=== PATIENT | female | born 1980 | race Caucasian/White ===

== ENCOUNTER → 2020-07-19 | Outpatient (CLI) | payer OTHER ==
--- NOTE | 2020-07-19 15:30 | MR ---
EXAMINATION TYPE: MR shoulder RT wo con DATE OF EXAM: 07/19/2020 COMPARISON: No radiographic correlation available HISTORY: 44-year-old female M25.511, Pain in right shoulder TECHNIQUE: Multiplanar, multisequence imaging of the right shoulder is performed without contrast. FINDINGS: Some intermediate signal within the long head biceps tendon at the junction of the intracapsular and extracapsular portions suggesting tendinosis. The extracapsular portion remains appropriately situate d along the bicipital groove. Some heterogeneous signal of the subscapularis tendon without tear. The supraspinatous tendon shows some bursal sided fraying. In addition, there is some minimal intrasubstance change at the footprint of the infraspinatus tendon . No high-grade partial or full-thickness rotator cuff tear. No atrophy of the rotator cuff musculature. There is moderate degenerative change at the acromioclavicular joint with marginal spurring mildly im pinging onto the underlying myotendinous junction of the supraspinatus. Trace thickening of the subacromial/subdeltoid bursa without fluid distention. No discrete labral tear given the radiographic technique. No paralabral cyst. Overall linear odontoid appears intact. No significant joint effusion. No Hill-Sachs deformity or os acromiale. Patchy red marrow is present and can be seen in the setting of anemia, obesity, smoking, and chronic disease. IMPRESSION: 1. Moderate AC joint OA. Inferior spurring likely contributes to mild subacromial impingement. 2. Bursal sided fraying of the supraspinatus tendon. No partial or full-thickness rotator cuff tear.
== END ==
LOC: RADMRIMAIN 11:05
PROVIDERS: ATTEND Orthopaedic Surgery
DX: M19.011 Primary osteoarthritis, right shoulder (principal)

== ENCOUNTER → 2020-09-17 | Outpatient (CLI) | payer OTHER ==
[2020-09-18 00:12] LABS: Basophils # (A) 0.03 X 10*3/uL (0.00-0.10); Basophils % (A) 0.5 %; Eosinophils # (A) 0.11 X 10*3/uL (0.04-0.35); Eosinophils % (A) 1.7 %; HCT 41.8 % (37.2-46.3); HGB 12.8 g/dL (12.0-15.0); Lymphocytes # (A) 2.11 X 10*3/uL (0.90-5.00); Lymphocytes % (A) 32.2 %; MCH 27.4 pg (27.0-32.0); MCHC 30.6 g/dL (32.0-37.0); MCV 89.3 fL (80.0-97.0); Mean Platelet Volume 10.9 fL (9.5-12.2); Monocytes # (A) 0.41 X 10*3/uL (0.20-1.00); Monocytes % (A) 6.3 %; Neutrophils # (A) 3.88 X 10*3/uL (1.80-7.70); Platelet Count 331 X 10*3/uL (140-440); RBC 4.68 X 10*6/uL (4.10-5.20); RDW 13.8 % (11.5-14.5); WBC 6.56 X 10*3/uL (4.50-10.00)
[2020-09-18 03:59] LABS: Potassium 4.1 mmol/L (3.5-5.5)
== END | disposition home or self-care (01) ==
LOC: LABWHC1 15:49
PROVIDERS: ATTEND Orthopaedic Surgery
DX: Z01.812 Encounter for preprocedural laboratory examination (principal); M23.92 Unspecified internal derangement of left knee
CPT/HCPCS: 36415; 80051; 85025

== ENCOUNTER 2020-09-23 10:09 | Day surgery (SDC) | payer OTHER ==
[2020-09-20 14:02] VITALS: BMI 29.8
--- NOTE | 2020-09-22 17:19 | HP ---
HISTORY AND PHYSICAL DATE OF SURGERY: 09/23/2020 Holly Riggins is a 40-year-old patient seen with progressive left knee pain. Options for treatment were discussed. She elected to proceed with left knee arthroscopy. Consent was obtained. PAST MEDICAL HISTORY: Osteoarthritis. PAST SURGICAL HISTORY: Shoulder arthroscopy, ORIF, elbow. DAILY MEDICATIONS: Zoloft. ALLERGIES: MOBIC, PERCOCET, TRAMADOL. SOCIAL HISTORY: She denies tobacco use. PHYSICAL EVALUATION OF THE LEFT KNEE: Range of motion is negative 1 to 95. Tenderness, medial joint line. Positive medial Khushbu's. Mild effusion. Ligaments stable. Patellar crepitus. Distal neurovascular exam intact. Left knee MRI revealed a loose body, full-thickness chondral defect and joint effusion. X-ray of the left knee revealed mild osteoarthritis. IMPRESSION: Internal derangement of left knee with osteochondral tear and loose body. PLAN: Left knee arthroscopy with chondroplasty and removal of loose body. MMODL / IJN: [id number] /
[~2020-09-23 10:09] MED LIST: DEXAMETHASONE SOD PHOSPHATE 4 MG/ML 1 ML VIAL IV ONE; LACTATED RINGERS 1,000 ML IV SCH; LIDOCAINE 1% (10MG/ML) FOR IV START INTRADERMA PRN; ONDANSETRON 4 MG/2 ML VIAL IVP ONE
[2020-09-23 10:34] VITALS: RESP 16; TEMP 98.7
[2020-09-23] MEDS ORDERED: BUPIVACAINE (PF) 0.25% 30 ML VIAL SQ ONE ×2 (12:01→12:41)
[2020-09-23] MEDS ORDERED: LIDOCAINE 1% INJ 10MG/ML (20 ML MDV) ONE (12:08)
[2020-09-23] MEDS ORDERED: MIDAZOLAM 2 MG/2 ML VIAL ONE (12:08)
[2020-09-23] MEDS ORDERED: KETOROLAC 15 MG/ML 1 ML VIAL ONE (12:08)
[2020-09-23] MEDS ORDERED: PROPOFOL 10 MG/ML 20 ML VIAL IV ONE (12:08)
[2020-09-23] MEDS ORDERED: fentaNYL (PF) 50 MCG/ML 2 ML AMP ONE (12:08)
--- NOTE | 2020-09-23 12:57 | P.OP ---
Date of Procedure: 09/23/20 Preoperative Diagnosis: Internal derangement left knee Postoperative Diagnosis: 1. Tear medial meniscus left knee 2. Grade 4 chondromalacia medial femoral condyle left knee 3. Grade 4 chondromalacia femoral sulcus left knee 4. Reactive synovitis medial, lateral and suprapatellar compartments left knee Procedure(s) Performed: 1. Arthroscopic partial medial meniscectomy left knee 2. Arthroscopic chondroplasty medial femoral condyle left knee 3. Arthroscopic microfracture medial femoral condyle left knee 4. Arthroscopic chondroplasty femoral sulcus left knee 5. Arthroscopic partial synovectomy medial, lateral and suprapatellar compartments left knee Anesthesia: STACY, local Surgeon: Prieto Cardenas Estimated Blood Loss (ml): 7 Pathology: none sent Condition: stable Disposition: PACU Indications for Procedure: 40-year-old patient seen with progressive left knee pain. After treatment options were discussed, she elected to proceed with arthroscopy. Operative Findings: See description of procedure Description of Procedure: Patient was taken to the operative suite. Patient underwent a general anesthetic by the department of anesthesia. Patient was given preoperative antibiotics. The left lower extremity was placed in a well-padded arthroscopic leg funes. The left leg was prepped and draped in the normal sterile orthopedic fashion. A lateral parapatellar and suprapatellar incision was made. Trochars were inserted. Arthroscopy was initiated. Suprapatellar pouch revealed diffuse thick reactive synovitis. The patellofemoral joint appeared to articulate congruently. There was grade 3/4 chondromalacia of the femoral sulcus with some large osteochondral flap tears present. The scope was guided into the medial gutter. Loose bodies or plica were identified. The scope was then guided into the medial compartment. A medial parapatellar incision was made. Trocar inserted followed by probe. There was a small radial tear posterior horn medial meniscus. There was an area of grade 4 chondromalacia weightbearing surface medial femoral condyle with large osteochondral flap tears. There was thick reactive synovitis anteriorly. I performed a partial medial meniscectomy down to stable meniscal tissue. I performed a chondroplasty of the medial femoral condyle getting down to stable osteochondral tissue. I performed a partial synovectomy decompressing the thick reactive synovitis ante riorly. The residual meniscus was stable. There was good decompression of the synovitis. There was a 1 cm x 2 cm area of exposed bone weightbearing surface medial femoral condyle. I now performed a microfracture to area penetrating the bone with resultant bleeding at the microfracture site. The peripheral osteochondral surface was again probed and was found be stable. Scope and probe were then guided into the intercondylar notch. Cruciates were identified, probed and found to be stable. The scope and probe were then guided into lateral compartment. The lateral meniscus was probed and found to be stable. There was no significant chondromalacia. There was some thick reactive synovitis anteriorly. I introduced a motorized shaver and performed a partial synovectomy. The shaver was removed. There was good decompression of the synovitis. The scope was in guided back into the suprapatellar compartment. Introduced a motorized shaver into the suprapatellar compartment. I debrided some piecemeal fragments of meniscus I encountered. I performed a chondroplasty of the femoral sulcus getting down to stable osteochondral tissue. There was an area centrally of exposed bone measuring 1 x 1 cm but the peripheral osteochondral surface was stable. I now performed a partial synovectomy decompressing the thick reactive synovitis within the suprapatellar compartment. The shaver was removed. There was good decompression of the synovitis there. I now took one more look on the entire knee, no residual debris. Instruments were now removed from the joint. The joint was infiltrated with .25% Marcaine. Steri-Strips were applied to the portal sites. Sterile dressings were applied. The patient was placed into a LIZANDRO hose. No tourniquet was utilized. The patient was awakened, transferred to a bed and taken to recovery stable satisfactory condition.
[2020-09-23] MEDS ORDERED: fentaNYL (PF) 50 MCG/ML 2 ML AMP IVP ONE (13:30)
[2020-09-23 14:43] VITALS: BP 122/77; PULSE 71
== END 2020-09-23 14:48 | disposition home or self-care (01) ==
LOC: OR 10:09
PROVIDERS: ATTEND Orthopaedic Surgery
DX: M23.222 Derangement of posterior horn of medial meniscus due to old tear or injury, left knee (principal); M94.262 Chondromalacia, left knee; M65.862 Other synovitis and tenosynovitis, left lower leg; M19.90 Unspecified osteoarthritis, unspecified site; F32.9 Major depressive disorder, single episode, unspecified; Z98.890 Other specified postprocedural states; Z98.1 Arthrodesis status; Z79.899 Other long term (current) drug therapy; Z88.6 Allergy status to analgesic agent; Z88.5 Allergy status to narcotic agent
CPT/HCPCS: 81025; 29881; 29879; J2250; J1100; J2405; J2001; J3010; J1885; J2704

== ENCOUNTER → 2020-12-03 | Outpatient (CLI) | payer OTHER ==
[2020-12-03 19:01] LABS: HCT 40.9 % (37.2-46.3); HGB 13.4 g/dL (12.0-15.0); MCH 28.7 pg (27.0-32.0); MCHC 32.8 g/dL (32.0-37.0); MCV 87.6 fL (80.0-97.0); Mean Platelet Volume 10.6 fL (9.5-12.2); Platelet Count 304 X 10*3/uL (140-440); RBC 4.67 X 10*6/uL (4.10-5.20); RDW 14.2 % (11.5-14.5)
[2020-12-03 19:47] LABS: INR 1.01 (0.90-1.11)
[2020-12-04 05:10] LABS: African American GFR (CKD) 124.7 (60.0-200.0); Albumin 4.5 g/dL (3.80-4.90); Albumin/Globulin Ratio 1.73 (1.60-3.17); Anion Gap 13.1 mmol/L (4.00-12.00); BUN/Creat Ratio 14.29 Ratio (12.00-20.00); Carbon Dioxide 20.9 mmol/L (21.6-31.8); Globulin 2.6 g/dL (1.6-3.3); Non-African American GFR(CKD) 107.6 (60.0-200.0); Potassium 3.8 mmol/L (3.5-5.5); Total Bilirubin 0.6 mg/dL (0.2-1.2); Total Protein 7.1 g/dL (6.2-8.2)
[2020-12-04 05:27] LABS: Ferritin 11.6 ng/mL (10.0-291.0)
== END | disposition home or self-care (01) ==
LOC: LABWHC1 11:26
PROVIDERS: ATTEND Family Medicine
DX: K75.81 Nonalcoholic steatohepatitis (NASH) (principal); K83.9 Disease of biliary tract, unspecified; R10.9 Unspecified abdominal pain
CPT/HCPCS: 36415; 80053; 82140; 82728; 85027; 85610

== ENCOUNTER 2021-04-25 17:24 | Emergency (ER) | payer OTHER ==
--- NOTE | 2021-04-25 18:10 | ED ---
Psych HPI - General Stated Complaint: EPS eval Time Seen by Provider: 04/25/21 18:07 Source: patient, RN notes reviewed Mode of arrival: ambulatory Limitations: no limitations - History of Present Illness Initial Comments: This is a 40-year-old female presents emergency Department with chief complaint of needing psychiatric evaluation. Patient had some recent medication changes what to make her mental health worse. She's had increasing suicidal ideation. Patient states that her PCP decided to discontinue medication advised her to come emergency department for psychiatric evaluation Patient is in no attempts to harm himself. Patient denies any illicit drug use. No alcohol abuse - Related Data Home Medications Medication Instructions Recorded Confirmed Ascorbic Acid [Vitamin C] 2,000 mg PO DAILY 09/20/20 09/20/20 Cannabidiol (Cbd) [Epidiolex] 0 mg PO DIRECTED 09/20/20 09/23/20 Cholecalciferol [Vitamin D3 (25 50 mcg PO DAILY 09/20/20 09/20/20 Mcg = 1000 Iu)] Gabapentin 300 mg PO BID PRN 09/20/20 09/20/20 Sertraline [Zoloft] 100 mg PO DAILY 09/20/20 09/23/20 Zinc 50 mg PO DAILY 09/20/20 09/20/20 Allergies Allergy/AdvReac Type Severity Reaction Status Date / Time acetaminophen [From Percocet] Allergy does not Verified 04/25/21 18:06 take due to liver issues meloxicam [From Mobic] Allergy rash, Verified 04/25/21 18:06 headache, body aches oxycodone [From Percocet] Allergy Vomiting, Verified 04/25/21 18:06 headaches tramadol Allergy Vomiting, Verified 04/25/21 18:06 headaches Review of Systems ROS Statement: Those systems with pertinent positive or pertinent negative responses have been documented in the HPI. ROS Other: All systems not noted in ROS Statement are negative. General Exam General appearance: alert, in no apparent distress Head exam: Present: atraumatic, normocephalic, normal inspection Neck exam: Present: normal inspection, full ROM. Absent: tenderness, meningismus, lymphadenopathy Respiratory exam: Present: normal lung sounds bilaterally. Absent: respiratory distress, wheezes, rales, rhonchi, stridor Cardiovascular Exam: Present: regular rate, normal rhythm, normal heart sounds. Absent: systolic murmur, diastolic murmur, rubs, gallop, clicks Neurological exam: Present: alert, oriented X3, CN II-XII intact Psychiatric exam: Present: depressed Skin exam: Present: warm, dry, intact, normal color. Absent: rash Course Vital Signs 04/25/21 04/25/21 18:06 20:59 Temperature 98.5 F Pulse Rate 91 Respiratory 20 18 Rate Blood Pressure 136/98 O2 Sat by Pulse 99 Oximetry Medical Decision Making - Medical Decision Making patient was evaluated in emergency department for psychiatric treatment. Patient will be discharged in stable condition with safety plan. - Lab Data Lab Results 04/25/21 Range/Units 18:44 Urine Opiates Screen Not Detected (NotDetected) Ur Oxycodone Screen Not Detected (NotDetected) Urine Methadone Screen Not Detected (NotDetected) Ur Propoxyphene Screen Not Detected (NotDetected) Ur Barbiturates Screen Not Detected (NotDetected) U Tricyclic Antidepress Not Detected (NotDetected) Ur Phencyclidine Scrn Not Detected (NotDetected) Ur Amphetamines Screen Not Detected (NotDetected) U Methamphetamines Scrn Not Detected (NotDetected) U Benzodiazepines Scrn Not Detected (NotDetected) Urine Cocaine Screen Not Detected (NotDetected) U Marijuana (THC) Screen Detected H (NotDetected) Disposition Clinical Impression: Depression Disposition: HOME SELF-CARE Condition: Stable Instructions (If sedation given, give patient instructions): Depression (ED) Additional Instructions: Please return to the Emergency Department if symptoms worsen or any other concerns. Is patient prescribed a controlled substance at d/c from ED?: No Referrals: Zain Kan MD [Primary Care Provider] - 1-2 days Time of Disposition: 21:40
[2021-04-25 19:16] LABS: Amphetamine Screen,Urine Not Detected (NotDetected); Barbiturate Screen,Urine Not Detected (NotDetected); Benzodiazepines Screen,Urine Not Detected (NotDetected); Cocaine Screen,Urine Not Detected (NotDetected); Methadone Screen, Urine Not Detected (NotDetected); Opiate Screen,Urine Not Detected (NotDetected); Oxycodone Screen, Urine Not Detected (NotDetected); Phencyclidine Screen,Urine Not Detected (NotDetected); Tricyclic Antidepressant,Urine Not Detected (NotDetected); Urn Cannabinoid Scrn Detected (NotDetected)
[2021-04-25] MEDS ORDERED: IBUPROFEN 600 MG TAB PO STA (20:05)
[2021-04-25] MEDS ORDERED: diphenhydrAMINE 50 MG CAP PO STA (20:05)
[2021-04-25] MEDS ORDERED: ACETAMINOPHEN TAB 325 MG TAB PO STA (20:05)
[2021-04-25 21:00] VITALS: RESP 18
[2021-04-25] MEDS ORDERED: LORazepam 2 MG/ML INJ IM STA (21:02)
[2021-04-25] MEDS ORDERED: LORazepam 1 MG TAB PO STA (21:49)
[2021-04-25 22:02] VITALS: BP 144/80; PULSE 85; TEMP 98.2
== END 2021-04-25 22:06 | disposition home or self-care (01) ==
LOC: EC 17:24
DX: F32.A Depression, unspecified (principal); Z79.899 Other long term (current) drug therapy
CPT/HCPCS: 82075; 80306; 99285; 96372; J2060

== ENCOUNTER → 2021-09-13 | Outpatient (CLI) | payer MEDICARE, OTHER ==
[2021-09-13 20:57] LABS: HCT 43.7 % (37.2-46.3); HGB 13.4 g/dL (12.0-15.0); MCH 28.8 pg (27.0-32.0); MCHC 30.7 g/dL (32.0-37.0); Mean Platelet Volume 11.3 fL (9.5-12.2); NRBC Per 100 WBC 0 /100 WBCS (0.0-0.0); Platelet Count 292 X 10*3/uL (140-440); RBC 4.65 X 10*6/uL (4.10-5.20); RDW 13.3 % (11.5-14.5); WBC 7.79 X 10*3/uL (4.50-10.00)
[2021-09-13 22:49] LABS: Albumin 4.3 g/dL (3.8-4.9); Albumin/Globulin Ratio 1.6 (1.60-3.17); Anion Gap 12.4 mmol/L (10.00-18.00); BUN/Creat Ratio 23.73 Ratio (12.00-20.00); Blood Urea Nitrogen 15.4 mg/dL (9.0-27.0); Calcium 9.2 mg/dL (8.7-10.3); Carbon Dioxide 23.9 mmol/L (20.0-27.5); Estradiol 35.9 pg/mL; Globulin 2.7 g/dL (1.6-3.3); Non-African American GFR(CKD) 109.6 (60.0-200.0); Potassium 4.3 mmol/L (3.5-5.5); Testosterone 20.4 ng/mL (9.01-47.94); Total Bilirubin 0.2 mg/dL (0.30-1.20); Total Protein 7.1 g/dL (6.2-8.2)
== END | disposition home or self-care (01) ==
LOC: LABWHC1 12:19
PROVIDERS: ATTEND Family Medicine
DX: N95.1 Menopausal and female climacteric states (principal); F32.81 Premenstrual dysphoric disorder; K75.81 Nonalcoholic steatohepatitis (NASH)
CPT/HCPCS: 36415; 80053; 82670; 84144; 84403; 84443; 85027

== ENCOUNTER → 2021-11-09 | Outpatient (CLI) | payer MEDICARE ==
--- NOTE | 2021-11-10 04:19 | MR ---
EXAMINATION TYPE: MR shoulder LT wo con DATE OF EXAM: 11/09/2021 COMPARISON: None HISTORY: LFT SHOULDER PAIN Multiplanar multiecho imaging of the left shoulder with no contrast. There is a mild shoulder joint effusion. Subscapularis tendon is intact. Biceps tendon appears normal . The glenoid saturnino appear intact. The AC joint is intact. There is minor spurring at the AC joint and greater minimal subacromial impin gement. The supraspinatus tendon appears intact. No retraction. Infraspinatus tendon is intact. Humer al head is intact. I see no focal bone destruction. IMPRESSION: Small shoulder joint effusion suggestive of some mild synovitis. No evidence of rotator cuff tear. Mi nor spurring at the AC joint.
== END | disposition home or self-care (01) ==
LOC: RADMRIMAIN 12:52
PROVIDERS: ATTEND Orthopaedic Surgery
DX: M19.012 Primary osteoarthritis, left shoulder (principal)

== ENCOUNTER → 2021-11-24 | Outpatient (CLI) | payer MEDICARE ==
[2021-11-24 16:14] LABS: Basophils # (A) 0.04 X 10*3/uL (0.00-0.10); Basophils % (A) 0.8 %; Eosinophils % (A) 2.1 %; HCT 42.5 % (37.2-46.3); HGB 13.4 g/dL (12.0-15.0); Immature Grans, Automated 0.2 %; Lymphocytes # (A) 1.69 X 10*3/uL (0.90-5.00); Lymphocytes % (A) 34.9 %; MCH 28.9 pg (27.0-32.0); MCHC 31.5 g/dL (32.0-37.0); MCV 91.8 fL (80.0-97.0); Mean Platelet Volume 10.5 fL (9.5-12.2); Monocytes # (A) 0.29 X 10*3/uL (0.20-1.00); NRBC Per 100 WBC 0 /100 WBCS (0.0-0.0); Neutrophils # (A) 2.71 X 10*3/uL (1.80-7.70); Platelet Count 260 X 10*3/uL (140-440); RBC 4.63 X 10*6/uL (4.10-5.20); RDW 13.5 % (11.5-14.5); WBC 4.84 X 10*3/uL (4.50-10.00)
[2021-11-24 17:06] LABS: Carbon Dioxide 25.7 mmol/L (20.0-27.5); Potassium 4.5 mmol/L (3.5-5.5)
== END | disposition home or self-care (01) ==
LOC: LABPAT 09:42
PROVIDERS: ATTEND Orthopaedic Surgery
DX: Z01.812 Encounter for preprocedural laboratory examination (principal); M75.41 Impingement syndrome of right shoulder
CPT/HCPCS: 80051; 85025

== ENCOUNTER → 2023-07-31 | Outpatient (CLI) | payer MEDICARE, OTHER ==
--- NOTE | 2023-07-31 15:09 | MM ---
Reason for Exam: Screening (asymptomatic). Baseline mammogram. Patient History: Menarche at age 10. Patient has no children. Last menstrual period: 06/30/2023 Risk Values: Brandy 5 year model risk: 0.9%. NCI Lifetime model risk: 11.8%. Prior Study Comparison: Patient's first Mammogram. Tissue Density: The breasts are heterogeneously dense, which may obscure small masses. Findings: Analyzed By CAD. Asymmetries in the bilateral breasts in the upper aspect on MLO view on the left and retroareolar on MLO view on the right, as well as the lateral aspect and posterior nipple on the right CC. , ASSESSMENT: 0 - Incomplete: Need additional imaging evaluation. Overall Assessment: Incomplete: need additional imaging evaluation, BI-RAD 0 Management: Diagnostic Mammogram of both breasts. [facility] will attempt to contact patient to return for supplemental views and ultrasound if indicated. Patient should continue monthly self-breast exams. A clinical breast exam by your physician is recommended on an annual basis. This exam should not preclude additional follow-up of suspicious palpable abnormalities. Note on Brandy scores and lifetime risk: 1. A Brandy score greater than 3% is considered moderate risk. If this is the case, consider specialist referral to assess eligibility for a risk reducing agent. 2. If overall lifetime risk for the development of breast cancer is 20% or higher, the patient may qualify for future screening with alternating mammogram and breast MRI. Electronically signed and approved by: Keagan Carcamo DO
== END | disposition home or self-care (01) ==
LOC: RADMAMWWP 10:47
PROVIDERS: ATTEND Family Medicine
DX: Z12.31 Encounter for screening mammogram for malignant neoplasm of breast (principal)
CPT/HCPCS: 77067

== ENCOUNTER → 2023-08-06 | Outpatient (CLI) | payer MEDICARE ==
--- NOTE | 2023-08-06 10:45 | MM ---
Reason for Exam: Additional evaluation requested from prior study. Last screening mammogram was performed less than 1 month ago. Patient History: Menarche at age 10. Patient has no children. Risk Values: Brandy 5 year model risk: 0.9%. NCI Lifetime model risk: 11.8%. Prior Study Comparison: 07/31/2023 Bilateral MG screening mammo w CAD, [facility]. Tissue Density: The breasts are heterogeneously dense, which may obscure small masses. Findings: Analyzed By CAD. Area of concern/asymmetry compresses out on spot compression imaging. No suspicious masses, calcifications or distortions. Overall Assessment: Benign, BI-RAD 2 Management: Screening Mammogram of both breasts in 1 year. Results were given to the patient verbally at the time of exam. Patient should continue monthly self-breast exams. A clinical breast exam by your physician is recommended on an annual basis. This exam should not preclude additional follow-up of suspicious palpable abnormalities. Note on Brandy scores and lifetime risk: 1. A Brandy score greater than 3% is considered moderate risk. If this is the case, consider specialist referral to assess eligibility for a risk reducing agent. 2. If overall lifetime risk for the development of breast cancer is 20% or higher, the patient may qualify for future screening with alternating mammogram and breast MRI. Electronically signed and approved by: Keagan Carcamo DO
== END | disposition home or self-care (01) ==
LOC: RADMAMWWP 10:00
PROVIDERS: ATTEND Family Medicine
DX: R92.333 Mammographic heterogeneous density, bilateral breasts (principal)
CPT/HCPCS: 77066; G0279; 77062

== ENCOUNTER → 2024-04-29 | Outpatient (CLI) | payer MEDICARE ==
--- NOTE | 2024-04-29 15:43 | CT ---
EXAMINATION TYPE: CT soft tissue neck w con CT DLP: 413.70 mGycm, Automated exposure control for dose reduction was used. DATE OF EXAM: 04/29/2024 3:01 PM COMPARISON: None. CLINICAL INDICATION:Female, 43 years old with history of R60.0 Edema K11.8 Other Diseases of salivary glands; PHH, rt side lump X 1month marked with BB TECHNIQUE: Standard enhanced CT of the neck following intravenous administration of 100 cc of Isovue 300. Axial sections with coronal and sagittal reformats were obtained. FINDINGS: Brain: Visualized portions are grossly unremarkable. Orbits: Unremarkable Sinuses: Grossly unremarkable. Suprahyoid Neck: The oropharynx, oral cavity, parapharyngeal and retropharyngeal spaces are clear and symmetric. The nasopharynx is unremarkable. Infrahyoid Neck: The larynx, hypopharynx, and supraglottic area are clear and symmetric. Parotid Glands: Unremarkable. Submandibular Glands: Left mandibular gland is unremarkable. Approximately 4 abutting calculi identif ied within the right submandibular gland proximal duct with largest measuring 4 mm (series 3, image 7 1). Hypoattenuating appearance of the right submandibular gland compared to the left. No significant surrounding inflammatory changes. No fluid collections. Musculoskeletal: No acute osseous pathology. Postsurgical changes from anterior cervical fusion C5-C6 . Lymph nodes: No enlarged lymph nodes greater than 1 cm in short axis. Vascular structures: Visualized major arteries are patent without evidence of aneurysm. Thoracic Inlet/airway: Airway is patent. The lung apices are clear. Soft tissues/Thyroid: Thyroid and remainder of the soft tissues are unremarkable. Other: none. IMPRESSION Palpable abnormality relates to approximately 4 abutting calculi within the right submandibular gland proximal [place]'s duct. Largest measuring up to 4 mm. No hyperenhancement or surrounding inflammato ry changes of the right submandibular gland to suggest active inflammation. Correlate clinically. [facility], , 04/29/2024 3:41 PM
== END | disposition home or self-care (01) ==
LOC: RADCTMAIN 14:32
PROVIDERS: ATTEND Family Medicine
DX: R60.0 Localized edema (principal); K11.8 Other diseases of salivary glands
CPT/HCPCS: 70491; Q9967

== ENCOUNTER 2024-09-21 14:15 | Emergency (ER) | payer MEDICARE ==
[2024-09-21] MEDS: SODIUM CHLORIDE 0.9% 1,000 ML IV ONE (17:07)
[2024-09-21 17:18] LABS: Basophils # (A) 0.02 10*3/uL (0.00-0.10); Basophils % (A) 0.3 %; Eosinophils # (A) 0.11 10*3/uL (0.04-0.35); Eosinophils % (A) 1.9 %; HCT 39.7 % (37.2-46.3); HGB 13.8 g/dL (12.0-15.0); Lymphocytes # (A) 2.18 10*3/uL (0.90-5.00); Lymphocytes % (A) 37.1 %; MCH 31.5 pg (27.0-32.0); MCHC 34.8 g/dL (32.0-37.0); MCV 90.6 fL (80.0-97.0); Mean Platelet Volume 9.9 fL (9.5-12.2); Monocytes % (A) 5.1 %; Neutrophils # (A) 3.24 10*3/uL (1.80-7.70); Neutrophils % (A) 55.3 %; Platelet Count 272 10*3/uL (140-440); RBC 4.38 10*6/uL (4.10-5.20); RDW 12.6 % (11.5-14.5); WBC 5.87 10*3/uL (4.50-10.00)
[2024-09-21 17:34] LABS: ALT 40 U/L (4-34); AST 39 U/L (14-36); African American GFR (CKD) >90 (>60 ml/min/1.73 sqM); Albumin 4.3 g/dL (3.5-5.0); Alkaline Phosphatase 61 U/L (38-126); Amylase 59 U/L (30-110); Anion Gap 7 mmol/L; Blood Urea Nitrogen 9 mg/dL (7-17); Calcium 9.9 mg/dL (8.4-10.2); Carbon Dioxide 26 mmol/L (22-30); Chloride 105 mmol/L (98-107); Glucose 90 mg/dL (74-99); Lipase 84 U/L (23-300); Non-African American GFR(CKD) >90 (>60 ml/min/1.73 sqM); Potassium 3.7 mmol/L (3.5-5.1); Sodium 138 mmol/L (137-145); Total Bilirubin 0.7 mg/dL (0.2-1.3); Total Protein 7.4 g/dL (6.3-8.2)
--- NOTE | 2024-09-21 17:40 | US ---
EXAMINATION TYPE: US abdomen limited DATE OF EXAM: 09/21/2024 COMPARISON: NONE CLINICAL INDICATION: Female, 44 years old with history of epigastric pain; epigastric pain. Cholecyst ectomy and "bile duct surgery" in 2017. TECHNIQUE: Grayscale and color Doppler imaging of the right upper quadrant was performed. FINDINGS: EXAM MEASUREMENTS: Liver Length: 17.2 cm Gallbladder Wall: Surgically absent CBD: 0.21 cm Right Kidney: 11.5 x 4.9 x 4.6 cm [employer] NOTES: Pancreas: wnl Liver: dilated vessels seen, hepatomegaly , smooth contour No evidence for mass no dilated ducts. Gallbladder: Surgically absent Evidence for sonographic Galicia's sign: No CBD: wnl Right Kidney: wnl IMPRESSION: 1. No evidence for acute process. 2. Hepatomegaly. [facility], , 09/21/2024 5:37 PM
[2024-09-21 17:45] LABS: Partial Thromboplastin Time 25.1 sec (22.0-30.0)
[2024-09-21 18:06] LABS: Prothrombin Time 11.4 sec (10.0-12.5)
--- NOTE | 2024-09-21 18:47 | ED ---
Abdominal Pain HPI - General Chief Complaint: Abdominal Pain Stated Complaint: abd cramps Time Seen by Provider: 09/21/24 15:55 Source: patient Mode of arrival: ambulatory Limitations: no limitations - History of Present Illness Initial Comments: 44-year-old female presenting with chief complaint of abdominal pain. Has been ongoing for the last 4 days. This is epigastric pain that is cramping in nature. It is brought on when she eats. Patient does have history of liver cysts, she has had a cholecystectomy and removal of the CBD as well as a dayan en y procedure. She follows with a team at [facility]. Some nausea no vomiting. No changes in her bowel patterns. No fever. No chest pain or difficulty breathing. - Related Data Home Medications Medication Instructions Recorded Confirmed Ascorbic Acid [Vitamin C] 2,000 mg PO DAILY 09/20/20 09/20/20 Cannabidiol (Cbd) [Epidiolex] 0 mg PO DIRECTED 09/20/20 09/23/20 Cholecalciferol [Vitamin D3 (25 50 mcg PO DAILY 09/20/20 09/20/20 Mcg = 1000 Iu)] Gabapentin 300 mg PO BID PRN 09/20/20 09/20/20 Sertraline [Zoloft] 100 mg PO DAILY 09/20/20 09/23/20 Zinc 50 mg PO DAILY 09/20/20 09/20/20 Allergies Allergy/AdvReac Type Severity Reaction Status Date / Time acetaminophen [From Percocet] Allergy does not Verified 09/21/24 14:32 take due to liver issues meloxicam [From Mobic] Allergy rash, Verified 09/21/24 14:32 headache, body aches oxycodone [From Percocet] Allergy Vomiting, Verified 09/21/24 14:32 headaches tramadol Allergy Vomiting, Verified 09/21/24 14:32 headaches Review of Systems ROS Statement: Those systems with pertinent positive or pertinent negative responses have been documented in the HPI. ROS Other: All systems not noted in ROS Statement are negative. Past Medical History Additional Past Medical History / Comment(s): TBI, liver cysts, c5-c6 fusion History of Any Multi-Drug Resistant Organisms: None Reported Past Surgical History: Orthopedic Surgery Additional Past Surgical History / Comment(s): bile duct removal Past Psychological History: Anxiety, Depression, PTSD Smoking Status: Never smoker Past Alcohol Use History: Rare Past Drug Use History: Marijuana General Exam Limitations: no limitations General appearance: alert, in no apparent distress Head exam: Present: atraumatic, normocephalic, normal inspection Eye exam: Present: normal appearance, EOMI Neck exam: Present: normal inspection. Absent: meningismus Respiratory exam: Present: normal lung sounds bilaterally. Absent: respiratory distress, wheezes, rales, rhonchi, stridor Cardiovascular Exam: Present: regular rate, normal rhythm, normal heart sounds. Absent: systolic murmur, diastolic murmur, rubs, gallop, clicks GI/Abdominal exam: Present: soft, tenderness (Epigastric pain). Absent: distended, guarding, rebound, rigid Neurological exam: Present: alert, oriented X3 Psychiatric exam: Present: normal affect, normal mood Skin exam: Present: warm, dry, normal color Course Vital Signs 09/21/24 09/21/24 14:30 19:18 Temperature 97.9 F 99.1 F Pulse Rate 83 63 Respiratory 20 18 Rate Blood Pressure 119/77 134/79 O2 Sat by Pulse 99 100 Oximetry Medical Decision Making - Medical Decision Making Was pt. sent in by a medical professional or institution (, PA, CORPORATE COUNSELOR, urgent care, hospital, or senior care...) When possible be specific @ -No Did you speak to anyone other than the patient for history (EMS, parent, family, police, friend...)? What history was obtained from this source @ -No Did you review nursing and triage notes (agree or disagree)? Why? @ -I reviewed and agree with nursing and triage notes Were old charts reviewed (outside hosp., previous admission, EMS record, old EKG, old radiological studies, urgent care reports/EKG's, senior care records)? Report findings @ -No old charts were reviewed Differential Diagnosis (chest pain, altered mental status, abdominal pain women, abdominal pain men, vaginal bleeding, weakness, fever, dyspnea, syncope, headache, dizziness, GI bleed, back pain, seizure, CVA, palpatations, mental health, musculoskeletal)? @ -MDM Differential Abdominal Pain Women: Appendicitis, Cholecystitis, diverticulosis, ischemic bowel, pancreatitis, hepatitis, UTI, gastroenteritis, AAA, incarcerated hernia, bowel obstruction, constipation, inflammatory bowel, hepatitis, peptic ulcer disease, splenic infarction, perforated viscus, vulvitis, ovarian torsion, PID, kidney stone, placenta abruption... This is not meant to be an all-inclusive list EKG interpreted by me (3pts min.). @ -EKG shows sinus rhythm ventricular rate 60. ND interval 155. QRS 97. QT 415. QTc [address] deviation X-rays interpreted by me (1pt min.). @ -None done CT interpreted by me (1pt min.). @ -None done U/S interpreted by me (1pt. min.). @ -Ultrasound shows no evidence for acute process. Hepatomegaly. What testing was considered but not performed or refused? (CT, X-rays, U/S, labs)? Why? @ -None What meds were considered but not given or refused? Why? @ -None Did you discuss the management of the patient with other professionals (professionals i.e. , PA, CORPORATE COUNSELOR, lab, RT, psych nurse, social secretary, relaster, teacher, financial aid officer, pillowcase cleaner)? Give summary @ -No Was smoking cessation discussed for >3mins.? @ -No Was critical care preformed (if so, how long)? @ -No Were there social determinants of health that impacted care today? How? (Homelessness, low income, unemployed, alcoholism, drug addiction, transportation, low edu. Level, literacy, decrease access to med. care, skilled nursing, rehab)? @ -No Was there de-escalation of care discussed even if they declined (Discuss DNR or withdrawal of care, Hospice)? DNR status @ -No What co-morbidities impacted this encounter? (DM, HTN, Smoking, COPD, CAD, Cancer, CVA, ARF, Chemo, Hep., AIDS, mental health diagnosis, sleep apnea, morbid obesity)? @ -None Was patient admitted / discharged? Hospital course, mention meds given and route, prescriptions, significant lab abnormalities, going to OR and other pertinent info. @ -44-year-old female presenting with chief complaint of abdominal pain. Epigastric pain worse when she eats. History and physical examination are conducted. Lab work shows AST 39 ALT 40 otherwise grossly unremarkable. Ul trasound shows hepatomegaly without other acute process. On reassessment the patient is resting comfortably. She reports no pain at this time. She is educated on today's findings. She will follow-up with her GI. Follow-up with PCP. Report back to ER with any new or worsening symptoms. Discussed return parameters and answered all questions. Patient conveyed verbal understanding and agreed to the plan. I discussed this case in detail with my attending Dr. Hampton Undiagnosed new problem with uncertain prognosis? @ -No Drug Therapy requiring intensive monitoring for toxicity (Heparin, Nitro, Insulin, Cardizem)? @ -No Were any procedures done? @ -No Diagnosis/symptom? @ -Abdominal pain Acute, or Chronic, or Acute on Chronic? @ -Acute Uncomplicated (without systemic symptoms) or Complicated (systemic symptoms)? @ -Uncomplicated Side effects of treatment? @ -No Exacerbation, Progression, or Severe Exacerbation? @ -No Poses a threat to life or bodily function? How? (Chest pain, USA, CO, pneumonia, PE, COPD, DKA, ARF, appy, cholecystitis, CVA, Diverticulitis, Homicidal, Alannah cidal, threat to staff... and all critical care pts) @ -Unlikely - Lab Data Result diagrams: 09/21/24 17:07 09/21/24 17:07 Lab Results 09/21/24 09/21/24 09/21/24 Range/Units 17:07 17:07 17:07 WBC 5.87 (4.50-10.00) 10*3/uL RBC 4.38 (4.10-5.20) 10*6/uL Hgb 13.8 (12.0-15.0) g/dL Hct 39.7 (37.2-46.3) % MCV 90.6 (80.0-97.0) fL MCH 31.5 (27.0-32.0) pg MCHC 34.8 (32.0-37.0) g/dL Plt Count 272 (140-440) 10*3/uL MPV 9.9 (9.5-12.2) fL Immature Gran % (Auto) 0.3 % Neutrophils % 55.3 % Lymphocytes % 37.1 % Monocytes % 5.1 % Eosinophils % 1.9 % Basophils % 0.3 % Immature Gran # 0.02 (0.00-0.04) 10*3/uL Neutrophils # 3.24 (1.80-7.70) 10*3/uL Lymphocytes # 2.18 (0.90-5.00) 10*3/uL Monocytes # 0.30 (0.20-1.00) 10*3/uL Eosinophils # 0.11 (0.04-0.35) 10*3/uL Basophils # 0.02 (0.00-0.10) 10*3/uL PT 11.4 (10.0-12.5) sec INR 1.0 (<1.2) APTT 25.1 (22.0-30.0) sec Sodium 138 (137-145) mmol/L Potassium 3.7 (3.5-5.1) mmol/L Chloride 105 (98-107) mmol/L Carbon Dioxide 26 (22-30) mmol/L Anion Gap 7 mmol/L BUN 9 (7-17) mg/dL Creatinine 0.64 (0.52-1.04) mg/dL Est GFR (CKD-EPI)AfAm >90 (>60 ml/min/1.73 sqM) Est GFR (CKD-EPI)NonAf >90 (>60 ml/min/1.73 sqM) Glucose 90 (74-99) mg/dL Plasma Lactic Acid Moris (0.7-2.0) mmol/L Calcium 9.9 (8.4-10.2) mg/dL Total Bilirubin 0.7 (0.2-1.3) mg/dL AST 39 H (14-36) U/L ALT 40 H (4-34) U/L Alkaline Phosphatase 61 (38-126) U/L Troponin I (0.000-0.034) ng/mL Total Protein 7.4 (6.3-8.2) g/dL Albumin 4.3 (3.5-5.0) g/dL Amylase 59 (30-110) U/L Lipase 84 (23-300) U/L 09/21/24 09/21/24 Range/Units 17:07 17:07 WBC (4.50-10.00) 10*3/uL RBC (4.10-5.20) 10*6/uL Hgb (12.0-15.0) g/dL Hct (37.2-46.3) % MCV (80.0-97.0) fL MCH (27.0-32.0) pg MCHC (32.0-37.0) g/dL Plt Count (140-440) 10*3/uL MPV (9.5-12.2) fL Immature Gran % (Auto) % Neutrophils % % Lymphocytes % % Monocytes % % Eosinophils % % Basophils % % Immature Gran # (0.00-0.04) 10*3/uL Neutrophils # (1.80-7.70) 10*3/uL Lymphocytes # (0.90-5.00) 10*3/uL Monocytes # (0.20-1.00) 10*3/uL Eosinophils # (0.04-0.35) 10*3/uL Basophils # (0.00-0.10) 10*3/uL PT (10.0-12.5) sec INR (<1.2) APTT (22.0-30.0) sec Sodium (137-145) mmol/L Potassium (3.5-5.1) mmol/L Chloride (98-107) mmol/L Carbon Dioxide (22-30) mmol/L Anion Gap mmol/L BUN (7-17) mg/dL Creatinine (0.52-1.04) mg/dL Est GFR (CKD-EPI)AfAm (>60 ml/min/1.73 sqM) Est GFR (CKD-EPI)NonAf (>60 ml/min/1.73 sqM) Glucose (74-99) mg/dL Plasma Lactic Acid Moris 0.7 (0.7-2.0) mmol/L Calcium (8.4-10.2) mg/dL Total Bilirubin (0.2-1.3) mg/dL AST (14-36) U/L ALT (4-34) U/L Alkaline Phosphatase (38-126) U/L Troponin I <0.012 (0.000-0.034) ng/mL Total Protein (6.3-8.2) g/dL Albumin (3.5-5.0) g/dL Amylase (30-110) U/L Lipase (23-300) U/L Disposition Clinical Impression: Abdominal pain Disposition: HOME SELF-CARE Condition: Good Instructions (If sedation given, give patient instructions): Abdominal Pain (ED) Additional Instructions: Follow-up with PCP. Report back to ER with any new or worsening symptoms. Is patient prescribed a controlled substance at d/c from ED?: No Referrals: Zain Kan MD [Primary Care Provider] - 1-2 days Time of Disposition: 18:47
[2024-09-21 19:32] VITALS: BP 134/79; PULSE 63; RESP 18; TEMP 99.1
== END 2024-09-21 19:18 | disposition home or self-care (01) ==
LOC: EC 14:15
DX: R10.13 Epigastric pain (principal); Z88.5 Allergy status to narcotic agent; Z88.8 Allergy status to other drugs, medicaments and biological substances
CPT/HCPCS: 36415; 76705; 80053; 82150; 83605; 83690; 84484; 85025; 85610; 85730; 93005; 96360; 96361; 99284